=== PATIENT | male | born 1985 | race African-American/Black ===

== ENCOUNTER 2018-02-16 14:57 | Outpatient (CLI) | payer OTHER ==
--- NOTE | 2018-02-16 17:25 | MRI Report ---
Reason: PAIN IN RIGHT ANKLE AND JOINTS OF RIGHT FOOT Procedure Date: 02/16/2018 Accession Number: [id number] / [id number] Procedure: MRI - Ankle RT W/O CPT Code: FULL RESULT: EXAM: RIGHT ANKLE/HINDFOOT MRI WITHOUT CONTRAST. EXAM DATE: 02/16/2018 03:40 PM. CLINICAL HISTORY: Pain in right ankle and joints of right foot. COMPARISON: None. TECHNIQUE: Multiplanar, multisequence T1-weighted and fluid-sensitive sequences of the ankle/hindfoot without contrast. Other: None. FINDINGS: Bones: No fractures or subluxations. No marrow edema. No bone lesions. Articular Cartilage: Unremarkable. Ligaments: The tibiofibular ligaments are intact. There is a tear at the fibular side of the anterior talofibular ligament. The posterior talofibular ligament is intact. The calcaneofibular ligament is intact. The deep and superficial deltoid and spring ligaments are intact. Anterior Tendons: The tibialis anterior, extensor hallucis longus, and extensor digitorum longus tendons are unremarkable. Medial Tendons: The tibialis posterior, flexor digitorum longus, and flexor hallucis longus tendons are unremarkable. Lateral Tendons: The peroneus brevis and longus are unremarkable. Achilles Tendon: The Achilles tendon is unremarkable. Musculature: No edema or fatty atrophy. Other: Small tibiotalar joint effusion. The contents of the sinus tarsi and tarsal tunnel are unremarkable. No plantar fasciitis. The subcutaneous tissues are unremarkable. IMPRESSION: 1. Tear at the fibular side of the anterior talofibular ligament. 2. Small tibiotalar joint effusion. [facility] MUSCULOSKELETAL RADIOLOGY SECTION
== END 2018-02-16 14:58 | disposition home or self-care (01) ==
LOC: DI 14:57
PROVIDERS: ATTEND General Practice
DX: S93.491A Sprain of other ligament of right ankle, initial encounter (principal); M25.471 Effusion, right ankle

== ENCOUNTER 2023-11-24 21:34 | Emergency (ER) | payer OTHER ==
--- NOTE | 2023-11-24 21:46 | ED Physician Documentation ---
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 He injured his left hand sliding and's baseball tonight. He has pain at the dorsum of the left hand with swelling there. It hurts especially to bend or extend his wrist and open his fingers. No other injuries. PD PAST MEDICAL HISTORY - Past Medical History Past Medical History: No - Past Surgical History Past Surgical History: Yes Ortho: Rotator cuff repair, Other - Allergies Allergies/Adverse Reactions: Allergies Allergy/AdvReac Type Severity Reaction Status Date / Time Sulfa (Sulfonamide Allergy Unknown Verified 11/24/23 21:40 Antibiotics) - Social History Does the pt smoke?: No Smoking Status: Never smoker Does the pt drink ETOH?: No Does the pt have substance abuse?: No - Immunizations Immunizations are current?: Yes - POLST Patient has POLST: No PD ED PE NORMAL - Vitals Vital signs reviewed: Yes - General General: Alert and oriented X 3, No acute distress - Extremities Extremities: Other (There is a fluctuant area of swelling over the dorsum of the left hand carpals that is most consistent with a broken vein and subcutaneous hematoma. That said there is tenderness in that area with limited range of motion as well. No tenderness of the wrist. No snuffbox tenderness.) - Neuro Neuro: Alert and oriented X 3, Normal speech Results - Vitals Vitals: Vital Signs - 24 hr 11/24/23 11/24/23 21:40 22:12 Temperature 36.8 C 36 C L Heart Rate 90 84 Respiratory 16 16 Rate Blood Pressure 152/90 H 122/68 O2 Saturation 100 99 Oxygen O2 Source Room air - Rads (name of study) Three-view x-ray of the right hand demonstrates mildly displaced dorsal triquetral fracture Relevant Findings:: Final report received, EMP independent interpretation of test Procedures - Splint (location) - Minor L wrist Splint applied by: Physician Type of splint: Fiberglass, Volar cock up Other: Patient tolerated well, No complications, Neurovascular intact Departure - Departure Disposition: 01 Home, Self Care Clinical Impression: Fracture, carpal bone closed Qualifiers: Encounter type: initial encounter Carpal bone: unspecified carpal bone Fracture alignment: displaced Laterality: left Qualified Code(s): S62.102A - Fracture of unspecified carpal bone, left wrist, initial encounter for closed fracture Condition: Good Record reviewed to determine appropriate education?: Yes Instructions: ED Fx Wrist General Comments: As discussed, it looks like you do have a little chip fracture off one of the carpal bones in the dorsum of your left wrist. [place] first make contact with your PCM to let them know that you fractured your left wrist and they should write you a referral to one [place]. Take the CD with the x-rays on it to that appointment. Keep the splint on and dry, do not get it wet or remove it. Tylenol and/or ibuprofen as needed for pain. Return for new or worsening symptoms. Forms: PCP List
[2023-11-24] MEDS: IBUPROFEN 800 MG TABLET PO STA (21:56)
[2023-11-24 22:15] VITALS: BP 122/68; O2SAT 99
--- NOTE | 2023-11-24 22:18 | XRAY Report ---
PROCEDURE: Hand 3+V LT INDICATIONS: Trauma TECHNIQUE: 3 views of the hand(s) acquired. COMPARISON: None. FINDINGS: Bones: Displaced dorsal triquetral fracture with overlying soft tissue swelling of the dorsal left w rist. Other osseous structures appear intact. No suspicious bony lesions. Soft tissues: No suspicious soft tissue calcifications or masses. IMPRESSION: Mildly displaced dorsal triquetral fracture with overlying soft tissue edema. Reviewed by: Sourav Barcenas MD on 11/24/2023 10:17 PM PDT Approved by: Sourav Barcenas MD on 11/24/2023 10:17 PM PDT Station ID: [id number]
== END 2023-11-24 22:12 | disposition home or self-care (01) ==
LOC: ED 21:34
DX: S62.112A Displaced fracture of triquetrum [cuneiform] bone, left wrist, initial encounter for closed fracture (principal); W22.8XXA Striking against or struck by other objects, initial encounter; Y93.64 Activity, baseball; Y92.320 Baseball field as the place of occurrence of the external cause
CPT/HCPCS: 29125; 73130; 99283; 99284; A9270

== ENCOUNTER 2023-12-01 15:19 | Outpatient (CLI) | payer OTHER ==
--- NOTE | 2023-12-01 21:06 | XRAY Report ---
PROCEDURE: Wrist 3+V LT INDICATIONS: WRIST PAIN, LEFT TECHNIQUE: 3 views of the wrist were acquired. COMPARISON: X-ray hand 11/24/2023 FINDINGS: Bones: Previously identified calcification along the dorsal aspect of the triquetral is again identi fied, unchanged. Soft tissues: No suspicious soft tissue calcifications or masses. IMPRESSION: Unchanged appearance of suspected triquetral avulsion fracture. Reviewed by: Marybel Sanders MD on 12/01/2023 9:05 PM PDT Approved by: Marybel Sanders MD on 12/01/2023 9:05 PM PDT Station ID: [id number]
== END 2023-12-01 15:20 | disposition home or self-care (01) ==
LOC: DI.N 15:19
PROVIDERS: ATTEND Orthopaedic Surgery
DX: S62.112A Displaced fracture of triquetrum [cuneiform] bone, left wrist, initial encounter for closed fracture (principal)

== ENCOUNTER 2023-12-07 21:54 | Emergency (ER) | payer OTHER ==
[2023-12-07 22:16] VITALS: O2SAT 98
--- NOTE | 2023-12-07 22:22 | ED Physician Documentation ---
PD HPI UPPER EXT INJURY - Stated complaint Stated Complaint: LT WRIST PX - Chief complaint Chief Complaint: Ext Problem - History obtained from History obtained from: Patient - History of Present Illness Location: Left, Wrist, Hand Type of injury: Other (had dorsal hand avulsion fx 2 weeks ago (11/24/23) when fell and is being treated with splint/cast (removable for brief time) for triquestral avulsion fx. f/u at [facility] and was told to not take NSAIDs as affects healing. No noted new injury. Has not been excessively using hand, etc.) Timing - details: Abrupt onset (the hand has not been hurting much the past few days, and then abruptly hurt more while just sitting at chair at home. No numbness nor discoloration of fingers. Finger movement caused pain. No forearm nor upper arm swelling.) Worsened by: Moving Review of Systems Cardiac: denies: Chest pain / pressure Respiratory: denies: Dyspnea Skin: denies: Rash, Lesions, Abrasion (s) Musculoskeletal: reports: Extremity pain. denies: Extremity swelling Neurologic: denies: Focal weakness, Numbness PD PAST MEDICAL HISTORY - Past Medical History Past Medical History: No Musculoskeletal: Other (no history of gout) - Past Surgical History Past Surgical History: Yes Ortho: Rotator cuff repair, Other - Present Medications Home Medications: Ambulatory Orders Medication Instructions Recorded Confirmed HYDROcod/ACETAM 5/325 [[place] 5/325] 1 ea PO Q6H PRN #10 tablet 12/07/23 - Allergies Allergies/Adverse Reactions: Allergies Allergy/AdvReac Type Severity Reaction Status Date / Time Sulfa (Sulfonamide Allergy Unknown Verified 12/07/23 21:59 Antibiotics) - Social History Does the pt smoke?: No Smoking Status: Never smoker Does the pt drink ETOH?: No Does the pt have substance abuse?: No - Immunizations Immunizations are current?: Yes - POLST Patient has POLST: No PD ED PE NORMAL - Vitals Vital signs reviewed: Yes - General General: Alert and oriented X 3, No acute distress, Well developed/nourished - Derm Derm: Normal color, Warm and dry, No rash - Extremities Extremities: No tenderness to palpate (in the upper forearm nor upper arm, no edema. ), Other (fibnger tip color and cap refill are good. SPlint in place and removed easily. No skin lesions. ) - Neuro Neuro: No motor deficit, No sensory deficit Results - Vitals Vitals: Vital Signs - 24 hr 12/07/23 12/07/23 22:00 23:10 Temperature 36.3 C L 36.3 C L Heart Rate 95 91 Respiratory 16 16 Rate Blood Pressure 139/84 H 158/107 H O2 Saturation 98 98 Oxygen O2 Source Room air - Rads (name of study) hand xray Relevant Findings:: Prelim report reviewed, EMP independent interpretation of test (no noted change in position of fracture piece. ) PD Medical Decision Making - ED course Complexity details: reviewed results (stable prior triquestral fracture. no interval change. ), re-evaluated patient (pain is much improving after NSAIDs and pain med, with then xray to eval. ), considered differential (fracture but minor bone involvement (avulsion triquestral) so low risk for compartment syndrome in area and is 2 weeks out. Does not have compartment syndrome features otherwise on exam. The pain this evening was not shifting of fracture piece. Presume rubbed tendon or nerve area. ), d/w patient ED course[place]IDs for fractures. I discussed the reasoning for that to the patient and why I disagree with it and most Orthopedists use NSAIDs in fractures. I think having that in the treatment will help as he had just stopped taking any a couple of days ago. Departure - Departure Disposition: 01 Home, Self Care Clinical Impression: Increased pain, Triquetral chip fracture Condition: Stable Record reviewed to determine appropriate education?: Yes Prescriptions: HYDROcod/ACETAM 5/325 [[place] 5/325] 1 ea PO Q6H PRN #10 tablet PRN Reason: Pain Comments: Your x-ray shows no change in the position of the avulsion/chip fracture. There may have been some movement or irritation of the tendon/ligament that attaches there causing increased pain. Clinically no suspicion for blood clots or infection or increased pressure through the site (called compartment syndrome). Presume there for mostly some local inflammation. I would suggest you resume anti-inflammatory use such as ibuprofen 600 to 800 mg 3 times a day with food. To that add Tylenol 500 to 650 mg 4 times a day for pain. Additionally you can add hydrocodone every 4-6 hours if needed for worse pain with the intention of that being short-term while this improves back to where it had been. I understand the controversy of anti-inflammatories and fractures and to my knowledge is based on some animal studies that showed slight delay in healing in fractures in those that were given NSAIDs. However it was minor effect and in practice, the good majority of orthopedics still uses NSAIDs and fracture injuries. I sent your prescription to [facility] pharmacy. I would anticipate the pain settling down over the next couple of days. Forms: PCP List, Activity restrictions Discharge Date/Time: 12/07/23 23:29
[2023-12-07] MEDS: IBUPROFEN 800 MG TABLET PO STA (22:52)
[2023-12-07] MEDS: HYDROcod/ACET 5/325 Prepack 4 PO STA (22:52)
[2023-12-07] MEDS: HYDROcod/ACETAM 5/325 MG TABLET PO STA (22:52)
[2023-12-07 23:34] VITALS: BP 158/107
--- NOTE | 2023-12-08 00:04 | XRAY Report ---
PROCEDURE: Wrist 3+V LT INDICATIONS: increased pain today at fracture area TECHNIQUE: 4 views of the wrist were acquired. COMPARISON: Left wrist radiographs 12/01/2023. FINDINGS: Bones: Stable prior triquetral fracture. No dislocations. No suspicious bony lesions. Soft tissues: No suspicious soft tissue calcifications or masses. IMPRESSION: Stable prior triquetral fracture. Reviewed by: Musa Sanchez MD on 12/08/2023 12:03 AM PDT Approved by: Musa Sanchez MD on 12/08/2023 12:03 AM PDT Station ID: [id number]
== END 2023-12-07 23:29 | disposition home or self-care (01) ==
LOC: ED 21:54
DX: M25.532 Pain in left wrist (principal); S62.115D Nondisplaced fracture of triquetrum [cuneiform] bone, left wrist, subsequent encounter for fracture with routine healing; X58.XXXD Exposure to other specified factors, subsequent encounter
CPT/HCPCS: 73110; 99283; 99284; A9270

== ENCOUNTER 2024-01-06 13:02 | Outpatient (CLI) | payer OTHER ==
--- NOTE | 2024-01-06 15:55 | XRAY Report ---
Wrist 3+V LT HISTORY: 38 years of age, DISPLACED FX OF TRIQUETRUM BONE,LEFT WRIST TECHNIQUE: Wrist 3+V LT COMPARISON: 12/07/2023. FINDINGS/IMPRESSION: Evolving dorsal triquetral fracture fragment, which appears less distinct and more globular in compar chica to prior exam. Small subchondral cystic changes at the proximal trapezium, favoring degenerative. Reviewed by: So Mendoza MD on 01/06/2024 3:53 PM PDT Approved by: So Mendoza MD on 01/06/2024 3:53 PM PDT Station ID: [id number]
== END 2024-01-06 13:03 | disposition home or self-care (01) ==
LOC: DI 13:02
PROVIDERS: ATTEND Orthopaedic Surgery
DX: S62.111D Displaced fracture of triquetrum [cuneiform] bone, right wrist, subsequent encounter for fracture with routine healing (principal)